=== PATIENT | female | born 1950 | race Caucasian/White ===

== ENCOUNTER 2018-11-17 07:17 | Day surgery (SDC) | payer MEDICARE ==
[2018-11-17] MEDS ORDERED: THY60T PO (07:58)
[2018-11-17 08:40] VITALS: BP 129/78
[2018-11-17 08:49] VITALS: BP 139/70
[2018-11-17 09:27] VITALS: BP 141/63
[2018-11-17 10:20] VITALS: BP 127/78
== END 2018-11-17 10:20 | disposition home or self-care (01) ==
LOC: SSTAY O 07:17
PROVIDERS: ATTEND Radiology Vascular & Interventional Radiology
DX: R22.1 Localized swelling, mass and lump, neck (principal); E03.9 Hypothyroidism, unspecified; Z98.890 Other specified postprocedural states; Z79.899 Other long term (current) drug therapy
CPT/HCPCS: 10005; 20206; 36415; 76942; 88173; 88305